=== PATIENT | female | born 1955 | race African-American/Black ===

== ENCOUNTER 2021-08-11 10:59 | Emergency (ER) | payer MEDICARE, OTHER ==
[~2021-08-11] VITALS: Ht 157.5 cm; Wt 95.3 kg
[2021-08-11 11:01] VITALS: BP 137/83
--- NOTE | 2021-08-11 11:01 | NUR ---
PT TAKEN TO ER BED 3.
--- NOTE | 2021-08-11 11:15 | NUR ---
66YO F CORDELL FROM [facility] C/O R KNEE PAIN AND SWELLING X 2 DAYS. PT HAD R KNEE REPLACEMENT SURGERY LAST JUL 30. PT SENT TO [facility] BY [facility] FOR US TO CHECK FOR POSSIBLE DVT. PMH: OSTEOARTHRITIS OF R KNEE, HTN, GERD, DM MEDS: SEE LIST ALLERGIES: JUANI-INHIBITORS, ZOCOR, PEANUTS
--- NOTE | 2021-08-11 11:26 | NUR ---
LABS DRAWN AND WALKED OVER TO LABORATORY
[2021-08-11 11:37] LABS: BASOPHILS # (AUTO) 0.3 K/uL (0.00-0.22); BASOPHILS % (AUTO) 2.1 % (0.0-2.0); EOSINOPHILS # (AUTO) 0.2 K/uL (0-0.4); EOSINOPHILS % (AUTO) 1.9 % (0.0-4.0); HEMATOCRIT 36.5 % (36-48); LYMPHOCYTES # (AUTO) 2.3 K/uL (2.5-16.5); LYMPHOCYTES % (AUTO) 18.6 % (20.5-51.1); MEAN CORPUSCULAR HEMOGLOBIN 31 pg (27-31); MEAN CORPUSCULAR HGB CONC 33 g/dL (33-37); MONOCYTES # (AUTO) 1.1 K/uL (0.8-1.0); NEUTROPHILS # (AUTO) 8.4 K/uL (1.8-7.7); NEUTROPHILS % (AUTO) 68.4 % (42.2-75.2); PLATELET COUNT (AUTO) 476 K/uL (140-450); RED BLOOD CELL COUNT(AUTO) 3.85 MIL/uL (4.20-5.40); RED CELL DISTRIBUTION WIDTH 13.6 % (11.6-13.7); WHITE BLOOD COUNT (AUTO) 12.3 K/uL (4.8-10.8)
--- NOTE | 2021-08-11 11:42 | NUR ---
US TECH AT BEDSIDE FOR PROCEDURE
[2021-08-11 11:45] LABS: ANION GAP 11.3 (8-16); CREATININE 1.1 mg/dL (0.6-1.3); POTASSIUM 4.3 mmol/L (3.5-5.1)
[2021-08-11 11:47] LABS: PROTHROMBIN TIME 9.4 secs (10.8-13.4)
--- NOTE | 2021-08-11 13:09 | NUR ---
DR ROCK AT BEDSIDE TO GIVE US RESULTS
--- NOTE | 2021-08-11 13:30 | NUR ---
PATIENT IS READY FOR D/C, [facility] MADE AWARE AND REPORT GIVEN TO SUSAN EUGENE. DR ROCK SPOKE TO SUSAN EUGENE REGARDING PAIN MEDICATION. TRANSPORT ARRANGED. PATIENT MADE AWARE.
[2021-08-11 14:43] VITALS: BP 118/56
--- NOTE | 2021-08-11 14:43 | NUR ---
[facility] PICKING UP PATIENT IN STABLE CONDTION. TRANSPORTED TO FACILITY VIA RROLLING MEADOWS
--- NOTE | 2021-08-11 14:43 | NUR ---
Patient discharged with v/s stable. Written and verbal after care instructions given and explained. Patient verbalized understanding. Ambulance Transport with to senior living. All questions addressed prior to discharge. Advised to follow up with PMD.
== END 2021-08-11 14:43 | disposition home or self-care (01) ==
LOC: MED 10:59
DX: M25.461 Effusion, right knee (principal)
CPT/HCPCS: 36415; 80048; 83880; 85025; 85610; 93971; 99284; Q0092